=== PATIENT | male | born 1935 | race Caucasian/White ===

== ENCOUNTER 2023-11-28 06:07 | Day surgery (SDC) | payer MEDICARE, OTHER ==
[2023-11-28] MEDS ORDERED: LIDOCAINE 1% (10MG/ML) FOR IV START INTRADERMA PRN (06:27)
[2023-11-28] MEDS: IV FLUID CONTINUATION 1,000 ML IV ONE (06:35)
[2023-11-28 06:47] VITALS: RESP 16; TEMP 97
[2023-11-28 06:51] LABS: Glucose,Whole Blood 114 mg/dL (70-110)
[2023-11-28] MEDS: LACTATED RINGERS 1,000 ML IV SCH (06:51)
[2023-11-28] MEDS ORDERED: ONDANSETRON 4 MG/2 ML VIAL IVP PRN (07:00)
[2023-11-28] MEDS ORDERED: PROPOFOL 10 MG/ML 20 ML VIAL IV ONE (07:10)
--- NOTE | 2023-11-28 07:46 | P.PCN ---
Date of Procedure: 11/28/23 Procedure(s) Performed: Brief history: Patient is a pleasant 88-year-old white male scheduled for an elective upper endoscopy as well as colonoscopy as a part of evaluation of iron deficiency and progressive weight loss for the last 6 months duration Procedure performed: Esophagogastroduodenoscopy with biopsy Colonoscopy biopsy and tattooing with Louise ink Preoperative diagnosis: Iron with biopsy deficient anemia Progressive weight loss Anesthesia: MAC Procedure: After informed consent was obtained from the patient was brought into the endoscopy unit and IV sedation was administered by anesthesia under continuous monitoring. Initially upper endoscopy was done. The Olympus GF 160 video endoscope was inserted inserted into the mouth and esophagus intubated without any difficulty and was gradually advanced into the stomach and duodenum and carefully examined. The bulb and second part of the duodenum appeared normal. Were done from the duodenum to evaluate for celiac disease. The scope was then withdrawn into the stomach adequately insufflated with air and upon careful examination the antrum had mild gastritis and biopsies were done for this area. Mucosa of the body, cardia and fundus appeared normal. The scope was then withdrawn into the esophagus. The GE junction was located at 40 cm to the incisors. It appeared regular with no erythema erosions or ulcerations. Rest of the esophagus appeared normal. Patient tolerated the procedure well. At this time the patient continued to remain sedation. Initial digital rectal examination was normal. Olympus CF 160 video colonoscope was then inserted into the rectum and gradually advanced to the cecum without any difficulty. Careful examination was performed as the scope was gradually being withdrawn. The prep was excellent. The cecum, appeared normal. In the mid ascending colon there was a semicircumferential ulcerated mass identified and multiple biopsies were done from this area followed by tattooing with Louise ink. Rest of the ascending colon, transverse colon, descending colon, sigmoid colon and rectum appeared normal. Sigmoid diverticulosis. Retroflexion was performed in the rectum and no lesions were noted. Patient tolerated the procedure well. Impression: 1. Upper endoscopy revealed mild antral gastritis but no evidence of esophagitis or peptic ulcer disease 2. Colonoscopy revealed ulcerated semicircumferential mid ascending colon mass status post multiple biopsies followed by tattooing with Louise ink and scattered sigmoid diverticulosis Recommendations: Findings of this examination were discussed with the patient as well as his family. He was advised to follow with the biopsy results. He will be seen in the office in 1 week. In the meantime he was scheduled for CT of the abdomen pelvis.
[2023-11-28 08:25] VITALS: BP 130/82; PULSE 68
== END 2023-11-28 09:10 | disposition home or self-care (01) ==
LOC: ORWHC2ENDO 06:07
PROVIDERS: ATTEND Internal Medicine Gastroenterology
CPT/HCPCS: 43239; 44404; 45380; 88305; 88341; 88342

== ENCOUNTER → 2023-11-29 | Outpatient (CLI) | payer MEDICARE ==
[2023-11-29 15:17] LABS: African American GFR (CKD) 59 (>60 ml/min/1.73 sqM); Blood Urea Nitrogen 23 mg/dL (9-20); Non-African American GFR(CKD) 51 (>60 ml/min/1.73 sqM)
--- NOTE | 2023-11-29 18:48 | CT ---
EXAMINATION TYPE: CT abdomen pelvis w con CT DLP: 1706 mGycm, Automated exposure control for dose reduction was used. DATE OF EXAM: 11/29/2023 5:25 PM COMPARISON: None. CLINICAL INDICATION: Male, 88 years old with history of K63.89 OTHER SPECIFIED DISEASES OF INTESTINE; Mass found on colonoscopy yesterday. TECHNIQUE: Axial CT abdomen pelvis w con;Sagittal and coronal reformats were created on a separate w orkstation. Contrast used:80ml mL of Isovue 300 with IV Contrast, (none if empty) Oral contrast used: with Oral Contrast (none if empty) FINDINGS: LOWER CHEST: Heart is enlarged for size with coronary artery atherosclerosis. Cardiac conduction lead s terminating in right ventricle and right atrium. Chronic interstitial changes in the lung bases. ABDOMEN LIVER: Scattered tiny subcentimeter hypodense lesions throughout the liver. GALLBLADDER AND BILE DUCTS: Higher density layering debris versus gallstones present. PANCREAS: Unremarkable. SPLEEN: Unremarkable. ADRENAL GLANDS: Unremarkable. KIDNEYS AND URETERS: No evidence of hydronephrosis or right renal calculus. The ureters are unremarka ble. Bilateral tiny renal cysts suggested. Nonobstructing left 3 mm contrast. PELVIS BLADDER: Unremarkable REPRODUCTIVE: Prostate is enlarged in size measuring 4.9 cm in transverse dimension. ABDOMEN & PELVIS STOMACH AND BOWEL: No evidence of bowel obstruction. Focal thickening of the hepatic flexure series 3 image 34 is somewhat circumferential extending at least 5.3 cm in length. No lymph nodes are seen in the medial mesentery to suggest local metastatic disease. Scattered colonic diverticula. PERITONEUM/RETROPERITONEUM: No evidence of pneumoperitoneum or free fluid. VASCULATURE: No evidence of aortic aneurysm. MUSCULOSKELETAL: No acute osseous abnormalities. Moderate disc degeneration changes are present throu ghout the thoracolumbar spine. LYMPH NODES: No gross evidence for lymphadenopathy. SOFT TISSUE/ABDOMINAL WALL: Fat-containing ventral hernias bilaterally. IMPRESSION: 1. Short segment colon wall compatible with malignancy following colonoscopy. Lymphadenopathy within the visualized. 2. Both tiny hypodense lesions throughout the liver which favor to represent simple cysts given lack of other evidence of metastatic disease. 3. 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 4. Chronic interstitial changes in the lung bases. 5. Nonobstructing left renal 3 mm calculus. 6. Colonic diverticulosis. 7. Prostatomegaly, correlate serum PSA. 8. Biliary debris versus gallstones thought to be present. [facility], , 11/29/2023 6:45 PM
== END | disposition home or self-care (01) ==
LOC: RADCTMAIN 14:30
PROVIDERS: ATTEND Internal Medicine Gastroenterology
CPT/HCPCS: 36415; 74177; 82565; 84520